=== PATIENT | male | born 1960 | race Hispanic/Latino ===

== ENCOUNTER 2020-05-08 10:55 | Observation (INO) | payer OTHER ==
[2020-05-08] MEDS ORDERED: SODIUM CHLORIDE 0.9% 500 ML 500 ML IV ONE (11:01)
[2020-05-08] MEDS ORDERED: ONDANSETRON 4 MG/2 ML INJ IV ONE ×2 (11:03→21:46)
--- NOTE | 2020-05-08 11:10 | Emergency Department Report ---
ED Chest Pain HPI - General Stated Complaint: CHEST PAIN PUI?: No Time Seen by Provider: 05/08/20 11:01 Source: patient, EMS Mode of arrival: Stretcher Limitations: No Limitations - History of Present Illness Initial Comments: Chief complaint: Weakness vomiting HPI: This is a 60-year-old male with history of diabetes mellitus and hypertension who presents with a sudden onset of weakness nausea vomiting. He informed EMS that he felt as if he was having a heart attack. EMS discovered this gentleman on the job slumped over the steering wheel of his [employer] truck. He denies chest pain. Denies abdominal pain. He has severe vomiting. This morning he was in his normal state of health. Symptoms sudden onset. No history of cardiac disease. He denies fever. Denies cough. Denies headache. MD Complaint: other (Sudden onset nausea vomiting generalized weakness) -: Sudden Onset: during rest Severity: severe Consistency: constant Improves With: nothing re: nausea, vomting Treatments Prior to Arrival: aspirin, nitroglycerin - Related Data Allergies Allergy/AdvReac Type Severity Reaction Status Date / Time No Known Allergies Allergy Unverified 05/08/20 11:17 Heart Score - HEART Score History: Moderately suspicious EKG: Non-specific Age: 45-65 Risk factors: > 3 risk factors or hx of atherosclerotic disease Troponin: < normal limit HEART Score: 5 ED Review of Systems ROS: Stated complaint: CHEST PAIN Other details as noted in HPI Comment: All other systems reviewed and negative Constitutional: denies: chills, fever, malaise Respiratory: denies: cough, shortness of breath Cardiovascular: denies: chest pain Gastrointestinal: nausea, vomiting. denies: abdominal pain ED Past Medical Hx - Past Medical History Previous Medical History?: Yes Hx Hypertension: Yes Hx Diabetes: Yes - Surgical History Additional Surgical History: Abdominal surgery for "ulcer" ED Physical Exam - General General appearance: alert, in no apparent distress, other (Patient appears pale uncomfortable eyes closed) - Head Head exam: Present: atraumatic, normocephalic - Eye Eye exam: Present: normal appearance. Absent: scleral icterus, conjunctival i njection - ENT ENT exam: Present: mucous membranes moist - Neck Neck exam: Present: normal inspection, full ROM - Respiratory Respiratory exam: Present: normal lung sounds bilaterally. Absent: respiratory distress, wheezes, rales, rhonchi - Cardiovascular Cardiovascular Exam: Present: regular rate, normal rhythm, normal heart sounds. Absent: systolic murmur, diastolic murmur, rubs, gallop - GI/Abdominal GI/Abdominal exam: Present: soft, normal bowel sounds, other (Large surgical scar right upper abdomen). Absent: distended, tenderness, guarding, rebound - Rectal Rectal exam: Present: deferred - Extremities Exam Extremities exam: Present: normal inspection - Neurological Exam Neurological exam: Present: alert, oriented X3 - Psychiatric Psychiatric exam: Present: normal affect, flat affect - Skin Skin exam: Present: warm, dry, intact, pallor. Absent: rash ED Course Vital Signs 05/08/20 11:42 Temperature 97.8 F Pulse Rate 62 Respiratory 16 Rate Blood Pressure 146/65 [Right] O2 Sat by Pulse 93 Oximetry - Reevaluation(s) Reevaluation #1: 05/08/20 12:44 Upon reexamination, patient has severe dizziness with spinning sensation. He now provides additional history. He stated that his symptoms started with severe dizziness. He had staggering gait. He has a sensation of room spinning. ED Medical Decision Making - Lab Data Result diagrams: 05/08/20 11:07 05/08/20 11:07 - EKG Data EKG shows normal: sinus rhythm, axis, intervals Rate: normal - EKG Data 05/08/20 11:13 EKG obtained at [address] Normal sinus rhythm rate 70 bpm normal axis normal intervals ST depressions in the inferolateral leads - Radiology Data Radiology results: report reviewed CHEST 1 VIEW INDICATION: weakness vomiting. COMPARISON: None FINDINGS: Support devices: None. Heart: Within normal limits. Lungs/Pleura: No acute air space or interstitial disease. Additional findings: None. IMPRESSION: No acute findings. Signer Name: Grupo Smith Jr, MD Signed: 05/08/2020 11:22 AM Workstation Name: [id number] CT head/brain wo con INDICATION: Stroke symptoms, vertigo, ataxia. TECHNIQUE: Routine CT head without contrast. All CT scans at this location are performed using CT dose reduction for ALARA by means of automated exposure control. COMPARISON: None. FINDINGS: BRAIN / INTRACRANIAL CONTENTS: No acute hemorrhage, mass effect, midline shift, or hydrocephalus. No appreciable acute large territorial or lacunar infarct. There are chronic- appearing infarcts in the bilateral posterior inferior cerebellar hemispheres. ORBITS: No significant abnormality of visualized orbits. SINUSES / MASTOIDS: No significant abnormality of visualized sinuses and mastoid air cells. ADDITIONAL FINDINGS: None. IMPRESSION: 1. No acute findings. 2. Chronic-appearing infarcts in the bilateral posterior inferior cerebellar hemispheres. - Medical Decision Making Patient presents with dizziness, unsteady gait vomiting. Differential diagnosis includes viral syndrome, viral labyrinthitis, benign positional vertigo, CVA. Initial concern was acute coronary syndrome. Patient informed EMS that he was having a heart attack. Vertigo-type symptoms were detected on reexamination CT head reveals bilateral PICA territory infarcts. I suspect current presentation are likely reemergence symptoms of previous stroke deficits. Patient thinks he have had a stroke a long time ago. Due to persistent symptoms, patient will be admitted for further treatment and evaluation. HEART score 4 Critical care attestation.: If time is entered above; I have spent that time in minutes in the direct care of this critically ill patient, excluding procedure time. ED Disposition Clinical Impression: Vertigo, Intractable nausea and vomiting Disposition: -09 OP ADMIT IP TO THIS HOSP Is pt being admited?: Yes Condition: Stable
--- NOTE | 2020-05-08 11:27 | XRay Report ---
CHEST 1 VIEW INDICATION: weakness vomiting. COMPARISON: None FINDINGS: Support devices: None. Heart: Within normal limits. Lungs/Pleura: No acute air space or interstitial disease. Additional findings: None. IMPRESSION: No acute findings. Signer Name: Grupo Smith Jr, MD Signed: 05/08/2020 11:22 AM Workstation Name: [id number]
[2020-05-08 11:41] LABS: Basophils # (Auto) 0.1 K/mm3 (0.0-0.1); Basophils % (Auto) 0.7 % (0.0-1.8); Eosinophils # (Auto) 0.1 K/mm3 (0.0-0.4); Hemoglobin 15.3 gm/dl (11.8-15.2); Lymphocytes # (Auto) 1.4 K/mm3 (1.2-5.4); Lymphocytes % (Auto) 12.2 % (13.4-35.0); Mean Corpuscular HGB Conc 35 % (32-34); Mean Corpuscular Volume 94 fl (84-94); Monocytes # (Auto) 0.4 K/mm3 (0.0-0.8); Monocytes % (Auto) 3.1 % (0.0-7.3); Platelet Count 180 K/mm3 (140-440); Red Blood Count 4.68 M/mm3 (3.65-5.03); Red Cell Distribution Width 13.2 % (13.2-15.2)
[2020-05-08 12:02] LABS: Alanine Aminotransferase 19 units/L (7-56); Albumin 4.1 g/dL (3.9-5); BUN/Creatinine Ratio 17; Blood Urea Nitrogen 15 mg/dL (9-20); Calcium 9.7 mg/dL (8.4-10.2); Hemolysis Index 9
[2020-05-08] MEDS ORDERED: MECLIZINE 25 MG TAB PO ONE (12:48)
[2020-05-08 13:51] LABS: INR 0.91 (0.87-1.13)
[2020-05-08 13:52] LABS: Partial Thromboplastin Time 22.2 Sec. (24.2-36.6)
--- NOTE | 2020-05-08 14:41 | Cat Scan Report ---
CT head/brain wo con INDICATION: Stroke symptoms, vertigo, ataxia. TECHNIQUE: Routine CT head without contrast. All CT scans at this location are performed using CT dos e reduction for ALARA by means of automated exposure control. COMPARISON: None. FINDINGS: BRAIN / INTRACRANIAL CONTENTS: No acute hemorrhage, mass effect, midline shift, or hydrocephalus. No appreciable acute large territorial or lacunar infarct. There are chronic-appearing infarcts in the b ilateral posterior inferior cerebellar hemispheres. ORBITS: No significant abnormality of visualized orbits. SINUSES / MASTOIDS: No significant abnormality of visualized sinuses and mastoid air cells. ADDITIONAL FINDINGS: None. IMPRESSION: 1. No acute findings. 2. Chronic-appearing infarcts in the bilateral posterior inferior cerebellar hemispheres. Signer Name: Singh Brody MD Signed: 05/08/2020 2:37 PM Workstation Name: [id number]
[2020-05-08] MEDS ORDERED: ONDANSETRON 4 MG/2 ML INJ ONE (21:45)
[2020-05-09] MEDS ORDERED: ONDANSETRON 4 MG/2 ML INJ IV PRN ×2 (00:34→01:00)
[2020-05-09] MEDS ORDERED: ACETAMINOPHEN 325 MG TAB PO PRN ×2 (00:34→01:00)
[2020-05-09] MEDS ORDERED: oxyCODONE /ACETAMINOPHEN 5-325MG TAB PO PRN (01:00)
[2020-05-09] MEDS ORDERED: METOCLOPRAMIDE 10 MG/2 ML INJ IV PRN (01:00)
[2020-05-09] MEDS ORDERED: SODIUM CHLORIDE 0.9% 1000 ML 1,000 ML IV SCH (01:00)
[2020-05-09] MEDS ORDERED: HYDROmorphone 1 MG/1 ML INJ IV PRN (01:00)
--- NOTE | 2020-05-09 01:20 | History and Physical Report ---
History of Present Illness Date of examination: 05/08/20 Date of admission: 05/08/20 15:56 Chief complaint: Nausea and vomiting since a.m. History of present illness: 60-year-old male with history of hypertension diabetes and hyperlipidemia comes in with sudden onset of weakness, nausea and vomiting. Patient informed that he was feeling as if he has a heart attack. No chest pain. 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 Denies abdominal pain denies chest pain. Vomiting several times. He was in his normal state of health or still this morning. Sudden onset. Also dizziness present. But able to walk. No fever. No exposure to coronavirus. Heart Score - HEART Score History: Moderately suspicious EKG: Non-specific Age: 45-65 Risk factors: > 3 risk factors or hx of atherosclerotic disease Troponin: < normal limit HEART Score: 5 Past History Past Medical History: diabetes, hypertension, hyperlipidemia Past Surgical History: No surgical history Social history: lives with family, full code Family history: hypertension Medications and Allergies Allergies Allergy/AdvReac Type Severity Reaction Status Date / Time No Known Allergies Allergy Unverified 05/08/20 11:17 Home Medications Medication Instructions Recorded Confirmed Last Taken Type AtorvaSTATin [Lipitor] 40 mg PO QHS 05/08/20 05/08/20 Unknown History Irbesartan [Avapro] 300 mg PO QDAY 05/08/20 05/08/20 Unknown History Metformin HCl [metFORMIN] 1,000 mg PO QDAY 05/08/20 05/08/20 Unknown History Metoprolol [Lopressor] 25 mg PO QDAY 05/08/20 05/08/20 Unknown History glyBURIDE [Diabeta] 5 mg PO BID 05/08/20 05/08/20 Unknown History Active Meds: Active Medications Acetaminophen (Tylenol) 650 mg PO Q4H PRN PRN Reason: Pain MILD(1-3)/Fever >100.5/ELKINS Atorvastatin Calcium (Lipitor) 40 mg PO QHS JOSE E Enoxaparin Sodium (Enoxaparin) 40 mg SUB-Q QDAY JOSE E Famotidine (Pepcid) 20 mg IV BID JOSE E Heparin Sodium (Porcine) (Heparin) 5,000 unit SUB-Q Q12HR JOSE E Hydromorphone HCl (Dilaudid) 0.5 mg IV Q3H PRN PRN Reason: Pain , Severe (7-10) Sodium Chloride (Nacl 0.9% 1000 Ml) 1,000 mls @ 100 mls/hr IV DIRECT JOSE E Labetalol HCl (Labetalol) 10 mg IV Q6H PRN PRN Reason: Blood Pressure Last Admin: 05/08/20 19:22 Dose: 10 mg Documented by: Losartan Potassium (Cozaar) 50 mg PO QDAY [facility] [place] Metoclopramide HCl (Reglan) 10 mg IV Q6H PRN PRN Reason: Nausea And Vomiting Metoprolol Tartrate (Metoprolol) 25 mg PO QDAY@0800 [facility] [place] Ondansetron HCl (Zofran) 4 mg IV Q8H PRN PRN Reason: Nausea And Vomiting Oxycodone/Acetaminophen (Percocet 5/325) 1 tab PO Q6H PRN PRN Reason: Pain, Moderate (4-6) Sodium Chloride (Sodium Chloride Flush Syringe 10 Ml) 10 ml IV BID [facility] Sodium Chloride (Sodium Chloride Flush Syringe 10 Ml) 10 ml IV PRN PRN PRN Reason: LINE FLUSH Review of Systems All systems: negative Constitutional: fever, no weight loss, no weight gain Ears, nose, mouth and throat: no ear pain, no ear discharge, no tinnitis, no decreased hearing, no nose pain Cardiovascular: no chest pain, no orthopnea, no palpitations, no rapid/irregular heart beat, no edema, no syncope, no lightheadedness, no shortness of breath Respiratory: no cough, no cough with sputum, no excessive sputum, no hemoptysis, no shortness of breath, no dyspnea on exertion Gastrointestinal: nausea, vomiting, no abdominal pain, no diarrhea, no constipation, no change in bowel habits, no hematemesis, no coffee ground emesis Genitourinary Male: no dysuria, no hematuria, no flank pain, no discharge, no urinary frequency, no urinary hesitancy, no nocturia, no incontinence, no erectile dysfunction, no genital pain Rectal: no pain Musculoskeletal: no neck stiffness, no neck pain, no shooting arm pain, no arm numbness/tingling, no low back pain Integumentary: no rash, no pruritis, no redness, no sores, no wounds Neurological: no head injury, no transient paralysis, no paralysis, no weakness, no parathesias, no numbness, no tingling Psychiatric: no anxiety, no memory loss, no change in sleep habits, no sleep disturbances, no insomnia, no hypersomnia, no change in appetite Endocrine: no cold intolerance, no heat intolerance, no polyphagia, no excessive thirst, no polydipsia, no polyuria Hematologic/Lymphatic: no easy bruising, no easy bleeding Allergic/Immunologic: no urticaria, no allergic rhinitis, no wheezing Exam - Constitutional Vitals: Temp Pulse Resp BP Pulse Ox 100.1 F H 70 18 137/52 93 05/08/20 22:34 05/08/20 22:34 05/08/20 22:34 05/08/20 22:34 05/08/20 22:34 General appearance: Present: no acute distress, well-nourished - EENT Eyes: Present: PERRL ENT: hearing intact, clear oral mucosa - Neck Neck: Present: supple, normal ROM - Respiratory Respiratory effort: normal Respiratory: bilateral: CTA - Cardiovascular Heart Sounds: Present: S1 & S2. Absent: rub, click - Extremities Extremities: pulses symmetrical, No edema Peripheral Pulses: within normal limits - Abdominal General gastrointestinal: Present: soft, non-tender, non-distended, normal bowel sounds Male genitourinary: Present: normal - Integumentary Integumentary: Present: clear, warm, dry - Musculoskeletal Musculoskeletal: gait normal, strength equal bilaterally - Psychiatric Psychiatric: appropriate mood/affect, intact judgment & insight - Neurologic Neurologic: CNII-XII intact, moves all extremities HEART Score - HEART Score EKG: Non-specific Age: 45-65 Risk factors: > 3 risk factors or hx of atherosclerotic disease Troponin: Troponin T < 0.010 ng/mL (0.00-0.029) 05/08/20 13:24 Troponin: < normal limit Results - Labs CBC & Chem 7: 05/08/20 11:07 05/08/20 11:07 Labs: Laboratory Last Values WBC 11.7 K/mm3 (4.5-11.0) H 05/08/20 11:07 RBC 4.68 M/mm3 (3.65-5.03) 05/08/20 11:07 Hgb 15.3 gm/dl (11.8-15.2) H 05/08/20 11:07 Hct 44.0 % (35.5-45.6) 05/08/20 11:07 MCV 94 fl (84-94) 05/08/20 11:07 MCH 33 pg (28-32) H 05/08/20 11:07 MCHC 35 % (32-34) H 05/08/20 11:07 RDW 13.2 % (13.2-15.2) 05/08/20 11:07 Plt Count 180 K/mm3 (140-440) 05/08/20 11:07 Lymph % (Auto) 12.2 % (13.4-35.0) L 05/08/20 11:07 [place] % (Auto) 3.1 % (0.0-7.3) 05/08/20 11:07 Eos % (Auto) 1.0 % (0.0-4.3) 05/08/20 11:07 Baso % (Auto) 0.7 % (0.0-1.8) 05/08/20 11:07 Lymph # (Auto) 1.4 K/mm3 (1.2-5.4) 05/08/20 11:07 [place] # (Auto) 0.4 K/mm3 (0.0-0.8) 05/08/20 11:07 Eos # (Auto) 0.1 K/mm3 (0.0-0.4) 05/08/20 11:07 Baso # (Auto) 0.1 K/mm3 (0.0-0.1) 05/08/20 11:07 Seg Neutrophils % 83.0 % (40.0-70.0) H 05/08/20 11:07 Seg Neutrophils # 9.7 K/mm3 (1.8-7.7) H 05/08/20 11:07 PT 12.4 Sec. (12.2-14.9) 05/08/20 13:24 INR 0.91 (0.87-1.13) 05/08/20 13:24 APTT 22.2 Sec. (24.2-36.6) L 05/08/20 13:24 Sodium 139 mmol/L (137-145) 05/08/20 11:07 Potassium 4.0 mmol/L (3.6-5.0) 05/08/20 11:07 Chloride 102.7 mmol/L (98-107) 05/08/20 11:07 Carbon Dioxide 24 mmol/L (22-30) 05/08/20 11:07 Anion Gap 16 mmol/L 05/08/20 11:07 BUN 15 mg/dL (9-20) 05/08/20 11:07 Creatinine 0.9 mg/dL (0.8-1.3) 05/08/20 11:07 Estimated GFR > 60 ml/min 05/08/20 11:07 BUN/Creatinine Ratio 17 % 05/08/20 11:07 Glucose 270 mg/dL (75-100) H 05/08/20 11:07 POC Glucose 233 (70-105) H 05/08/20 11:23 Calcium 9.7 mg/dL (8.4-10.2) 05/08/20 11:07 Total Bilirubin 0.50 mg/dL (0.1-1.2) 05/08/20 11:07 AST 15 units/L (5-40) 05/08/20 11:07 ALT 19 units/L (7-56) 05/08/20 11:07 Alkaline Phosphatase 107 units/L (35-129) 05/08/20 11:07 Troponin T < 0.010 ng/mL (0.00-0.029) 05/08/20 13:24 Total Protein 6.3 g/dL (6.3-8.2) 05/08/20 11:07 Albumin 4.1 g/dL (3.9-5) 05/08/20 11:07 Albumin/Globulin Ratio 1.9 % 05/08/20 11:07 Lipase 67 units/L (13-60) H 05/08/20 11:07 Short CBC 05/08/20 Range/Units 11:07 WBC 11.7 H (4.5-11.0) K/mm3 Hgb 15.3 H (11.8-15.2) gm/dl Hct 44.0 (35.5-45.6) % Plt Count 180 (140-440) K/mm3 BMP 05/08/20 11:07 Sodium 139 Potassium 4.0 Chloride 102.7 Carbon Dioxide 24 BUN 15 Creatinine 0.9 Glucose 270 H Calcium 9.7 Cardiac Enzymes 05/08/20 05/08/20 Range/Units 11:07 13:24 Troponin T < 0.010 < 0.010 (0.00-0.029) ng/mL Liver Function 05/08/20 Range/Units 11:07 Total Bilirubin 0.50 (0.1-1.2) mg/dL AST 15 (5-40) units/L ALT 19 (7-56) units/L Alkaline Phosphatase 107 (35-129) units/L Albumin 4.1 (3.9-5) g/dL - Imaging and Cardiology EKG: report reviewed (Normal sinus rhythm heart rate of 75/min no acute ST-T wave changes) Chest x-ray: report reviewed (No acute findings) Imaging and Cardiology: Head CT No acute findings Chronic appearing infarcts in the bilateral posterior inferior cerebellar hemisphere Carbajal/IV: Voiding Method Urinal IV Catheter Type [Left INT / Saline Lock Antecubital] Assessment and Plan Advance Directives: Yes (Full code) VTE prophylaxis?: Chemical Plan of care discussed with patient/family: Yes - Patient Problems (1) Acute coronary syndrome Current Visit: Yes Status: Acute Plan to address problem: Serial troponins Lexiscan in the morning (2) Intractable nausea and vomiting Current Visit: Yes Status: Acute Plan to address problem: IV normal saline IV Reglan and IV Zofran Phenergan suppository if necessary (3) Vertigo Current Visit: Yes Status: Acute Plan to address problem: Meclizine 12.5 every 8 as needed (4) Hypertension Current Visit: Yes Status: Chronic Qualifiers: Hypertension type: essential hypertension Qualified Code(s): I10 - Essential (primary) hypertension Plan to address problem: Continue antihypertensives Adjust medications as necessary (5) T2DM (type 2 diabetes mellitus) Current Visit: Yes Status: Chronic Qualifiers: Diabetes mellitus alf insulin use: without alf use Plan to address problem: We will stop metformin and glyburide Coverage for now Check hemoglobin A1c (6) Hyperlipidemia Current Visit: Yes Status: Chronic Qualifiers: Hyperlipidemia type: mixed hyperlipidemia Qualified Code(s): E78.2 - Mixed hyperlipidemia Plan to address problem: Continue statins (7) DVT prophylaxis Current Visit: Yes Status: Acute Plan to address problem: On heparin and GI prophylaxis
[2020-05-09 05:12] LABS: Basophils % (Auto) 0.5 % (0.0-1.8); Eosinophils % (Auto) 0.5 % (0.0-4.3); Lymphocytes # (Auto) 2.3 K/mm3 (1.2-5.4); Mean Corpuscular HGB Conc 36 % (32-34); Mean Corpuscular Volume 92 fl (84-94); Monocytes # (Auto) 0.5 K/mm3 (0.0-0.8); Platelet Count 196 K/mm3 (140-440); Red Blood Count 4.51 M/mm3 (3.65-5.03); Red Cell Distribution Width 13.2 % (13.2-15.2)
[2020-05-09 05:30] LABS: Alanine Aminotransferase 15 units/L (7-56); Albumin 3.4 g/dL (3.9-5); BUN/Creatinine Ratio 19; Blood Urea Nitrogen 17 mg/dL (9-20); Calcium 9.2 mg/dL (8.4-10.2); Hemolysis Index 5
[2020-05-09 05:31] LABS: Hematocrit 41.5 % (35.5-45.6); Hemoglobin 14.9 gm/dl (11.8-15.2)
[2020-05-09] MEDS ORDERED: REGADENOSON 0.4 MG/5 ML INJ IV ONE (06:46)
[2020-05-09] MEDS ORDERED: METOPROLOL TARTRATE 25 MG TAB PO SCH (08:00)
[2020-05-09] MEDS: INSULIN LISPRO 100 UNIT/ML VIAL 3 mL SUB-Q SCH ×2 (09:58→11:37)
[2020-05-09] MEDS ORDERED: FAMOTIDINE 20 MG/2 ML INJ IV SCH (10:00)
[2020-05-09] MEDS ORDERED: ENOXAPARIN 40 MG/0.4 ML INJ SUB-Q SCH (10:00)
[2020-05-09] MEDS ORDERED: LOSARTAN 50 MG TAB PO SCH (10:00)
[2020-05-09] MEDS: HEPARIN 5,000 UNIT/1 ML VIAL SUB-Q SCH ×2 (11:34→12:27)
[2020-05-09 13:19] VITALS: BP 185/67
--- NOTE | 2020-05-09 14:49 | Discharge Summary ---
Providers - Providers Date of Admission: 05/08/20 15:56 Date of discharge: 05/09/20 Attending physician: TAMIR TAVARES [facility] Condition: Stable Disposition: DC- LEFT AGAINST MED ADVICE Exam - Constitutional Vitals: Temp Pulse Resp BP Pulse Ox 97.9 F 60 21 185/67 97 05/09/20 05:56 05/09/20 13:39 05/09/20 10:00 05/09/20 13:39 05/09/20 13:17 Plan Forms: AMA Form
[2020-05-09] MEDS ORDERED: FAMOTIDINE 20 MG TAB PO SCH (22:00)
--- NOTE | 2020-05-18 21:24 | Treadmill Report ---
THALLIUM STRESS TEST LEFT VENTRICLE: Left ventricle is mildly dilated. There is a small to moderate sized, mostly fixed inferior wall defect with very mild reversibility in the lateral wall. Gated analysis demonstrates well-preserved left ventricular systolic function with ejection fraction of 53%. CONCLUSION: Evidence of a prior basal inferior infarct, with very mild degree of possible anthony-infarct ischemia. Clinical correlation is recommended. JOB# [id number] CA/NTS
== END 2020-05-09 18:23 | disposition left against medical advice (07) ==
LOC: ED 10:55 → 4A 15:56
PROVIDERS: ADMIT Internal Medicine; ATTEND Internal Medicine
DX: I24.9 Acute ischemic heart disease, unspecified (principal); I10 Essential (primary) hypertension; R11.2 Nausea with vomiting, unspecified; R42 Dizziness and giddiness; E11.9 Type 2 diabetes mellitus without complications; E78.5 Hyperlipidemia, unspecified; Z79.84 Long term (current) use of oral hypoglycemic drugs; Z79.899 Other long term (current) drug therapy
CPT/HCPCS: 36415; 70450; 71045; 78452; 80053; 82962; 83036; 83690; 84484; 85025; 85610; 85730; 93005; 93017; 96372; 96374; 96375; 96376; 99285; A9502; G0378; J1644; J2405; J2785; J7040